=== PATIENT | male | born 1980 | race African-American/Black ===

== ENCOUNTER 2017-01-27 18:45 | Inpatient (IN) | payer MEDICAID ==
[~2017-01-27] VITALS: Ht 172.7 cm; Wt 77.1 kg
[~2017-01-27 18:45] MED LIST: IOHEXOL-350 100 ML BOTTLE ONE; SODIUM CHLORIDE 0.9% 10ML VIAL ONE
[2017-01-27] MEDS ORDERED: ALBUTEROL (0.083%) 2.5MG/3ML NEB HHN STA (22:36)
[2017-01-27] MEDS ORDERED: IPRATROPIUM BROMIDE (0.02%) 0.5MG/2.5ML NEB HHN STA (22:36)
[2017-01-27] MEDS ORDERED: KETOROLAC 30MG/ML VIAL IV STA (22:36)
[2017-01-27] MEDS ORDERED: METHYLPREDNISOLONE SOD SUCC 125 MG/2 ML VIAL IV STA (22:36)
[2017-01-27] MEDS ORDERED: CEFTRIAXONE 1 G PREMIX 50 ML IV ONE (22:45)
[2017-01-27] MEDS ORDERED: ASPIRIN 81MG TABLET PO ONE (22:45)
[2017-01-27] MEDS ORDERED: AZITHROMYCIN 500 MG in DEXT 5% WATER 250 ML IV ONE (22:45)
[2017-01-27] MEDS ORDERED: MAGNESIUM 2 G PREMIX 50 ML IV ONE (22:45)
[2017-01-27 23:03] LABS: BG DEOXYHEMOGLOBIN 4.5 % (0.0-5.0); BG FRACTION INSPIRED OXYGEN 21; BG HCO3 ACT 21.7 mmol/L (22.0-26.0); BG METHEMOGLOBIN 0.3 % (0.0-1.5); BG OXYGEN SATURATION 95.4 % (92.0-98.5); BG OXYHEMOGLOBIN 94.2 % (94.0-97.0); BG PH 7.522 (7.350-7.450); BG PO2 72.3 mmHg (75.0-100.0); BG SAMPLE SITE RIGHT RADIAL; BG VENT MODE ROOM AIR
[2017-01-27 23:06] LABS: *AMPHETAMINES SCREEN URINE PRESUMTIVE POSITIVE (NEGATIVE); *BARBITURATES SCREEN URINE NEGATIVE (NEGATIVE); *BENZODIAZEPINES SCREEN URINE NEGATIVE (NEGATIVE); *COCAINE SCREEN URINE NEGATIVE (NEGATIVE); CANNABINOID URINE SCREEN PRESUMTIVE POSITIVE (NEGATIVE); METHADONE URINE SCREEN NEGATIVE (NEGATIVE); OPIATES URINE SCREEN NEGATIVE (NEGATIVE); PHENCYCLIDINE URINE SCREEN NEGATIVE (NEGATIVE)
[2017-01-27 23:13] LABS: BASOPHILS % 0.5 % (0.0-2.0); EOSINOPHILS % 2.7 % (0.0-5.0); HEMATOCRIT. 39.5 % (42.0-52.0); HEMOGLOBIN. 12.9 g/dL (14.0-18.0); LYMPHOCYTES % 28.1 % (20.0-50.0); MEAN CORPUSCULAR HEMOGLOBIN 27.5 pg (28.0-32.0); MEAN PLATELET VOLUME 8.1 fl (7.4-10.4); MONOCYTES % 6.1 % (2.0-8.0); NEUTROPHILS % 62.6 % (40.0-76.0); PLATELET 187 x1000/uL (130-400); RED CELL DISTRIBUTION WIDTH 15.4 % (11.6-14.6)
[2017-01-27 23:20] LABS: INR 1.3; PROTHROMBIN TIME 13.4 sec (9.4-11.6)
[2017-01-27 23:28] LABS: CARBON DIOXIDE 26 mEq/L (21-32); CHLORIDE 104 mEq/L (98-107)
[2017-01-27 23:29] LABS: ETHANOL BLOOD < 10 mg/dL
[2017-01-27] MEDS ORDERED: SODIUM CHLORIDE 0.9% 500 ML IV NR (23:36)
[2017-01-28] VITALS (7 sets, daily range): BP systolic 94–152; BP diastolic 70–78
[2017-01-28] MEDS ORDERED: IPRATROPIUM/ALBUTEROL 0.5-3(2.5)MG/3ML NEB INH PRN
[2017-01-28] MEDS ORDERED: ACETAMINOPHEN 325MG TABLET PO PRN
[2017-01-28] MEDS ORDERED: HYDROCODONE/ACETAMINOPHEN 5/325MG TABLET PO PRN
[2017-01-28] MEDS ORDERED: MAGNESIUM/ALUMINUM HYDROXIDE/SIMETHICONE 30ML UDC PO PRN
[2017-01-28] MEDS ORDERED: CLONIDINE 0.1MG TABLET PO PRN
[2017-01-28] MEDS ORDERED: ONDANSETRON HCL 4MG/2ML VIAL IV PRN
[2017-01-28] MEDS: BUDESONIDE 0.5MG/2ML NEB HHN SCH ×2 (08:01→20:40)
[2017-01-28] MEDS: AZITHROMYCIN 500 MG TABLET PO SCH (09:20)
[2017-01-28] MEDS: ENOXAPARIN 40MG/0.4ML SYR SUBCUT SCH (09:20)
[2017-01-28 09:27] LABS: BASOPHILS % 0.2 % (0.0-2.0); EOSINOPHILS % 1.3 % (0.0-5.0); HEMATOCRIT. 37.3 % (42.0-52.0); HEMOGLOBIN. 12.2 g/dL (14.0-18.0); LYMPHOCYTES % 23.5 % (20.0-50.0); MEAN CORPUSCULAR HEMOGLOBIN 27.4 pg (28.0-32.0); MEAN CORPUSCULAR VOLUME 83.6 fL (80.0-94.0); MEAN PLATELET VOLUME 8.1 fl (7.4-10.4); MONOCYTES % 7.2 % (2.0-8.0); NEUTROPHILS % 67.8 % (40.0-76.0); PLATELET 184 x1000/uL (130-400); RED BLOOD CELL COUNT 4.46 mill/uL (4.7-6.1); RED CELL DISTRIBUTION WIDTH 15.3 % (11.6-14.6)
[2017-01-28 09:53] LABS: CREATINE KINASE MB FRACTION 1.5 ng/mL (0.5-3.6)
[2017-01-28] MEDS: IPRATROPIUM/ALBUTEROL 0.5-3(2.5)MG/3ML NEB HHN SCH ×2 (14:49→20:41)
[2017-01-28] MEDS: CARVEDILOL 3.125 MG TABLET PO SCH (21:00)
[2017-01-28 22:58] LABS: CREATINE KINASE MB FRACTION 1.4 ng/mL (0.5-3.6)
[2017-01-29] VITALS (7 sets, daily range): BP systolic 96–113; BP diastolic 68–79
[2017-01-29] MEDS: IPRATROPIUM/ALBUTEROL 0.5-3(2.5)MG/3ML NEB HHN SCH ×4 (03:39→21:12)
[2017-01-29 07:02] LABS: BASOPHILS % 0.2 % (0.0-2.0); EOSINOPHILS % 1.4 % (0.0-5.0); HEMATOCRIT. 36.9 % (42.0-52.0); HEMOGLOBIN. 12.1 g/dL (14.0-18.0); LYMPHOCYTES % 25.8 % (20.0-50.0); MEAN CORPUSCULAR HEMOGLOBIN 27.3 pg (28.0-32.0); MEAN CORPUSCULAR VOLUME 83.2 fL (80.0-94.0); MEAN PLATELET VOLUME 8.4 fl (7.4-10.4); MONOCYTES % 8.7 % (2.0-8.0); NEUTROPHILS % 63.9 % (40.0-76.0); PLATELET 197 x1000/uL (130-400); RED BLOOD CELL COUNT 4.43 mill/uL (4.7-6.1); RED CELL DISTRIBUTION WIDTH 15.3 % (11.6-14.6)
[2017-01-29 08:22] LABS: CARBON DIOXIDE 25 mEq/L (21-32); CHLORIDE 103 mEq/L (98-107)
[2017-01-29] MEDS: BUDESONIDE 0.5MG/2ML NEB HHN SCH ×2 (08:38→21:12)
[2017-01-29] MEDS: AZITHROMYCIN 500 MG TABLET PO SCH (08:54)
[2017-01-29] MEDS: ENOXAPARIN 40MG/0.4ML SYR SUBCUT SCH (08:55)
[2017-01-29] MEDS: CARVEDILOL 3.125 MG TABLET PO SCH ×2 (08:55→21:40)
[2017-01-29] MEDS: DOCUSATE SODIUM 100MG CAPSULE PO PRN (08:55)
[2017-01-29] MEDS ORDERED: LEVOFLOXACIN 500MG TABLET PO SCH (11:00)
[2017-01-29] MEDS ORDERED: P20 PO (11:10)
[2017-01-29] MEDS ORDERED: PULM50 HHN (11:10)
[2017-01-29] MEDS ORDERED: COR3 PO (11:10)
[2017-01-29] MEDS ORDERED: ALBU6.7H INH (11:10)
[2017-01-29] MEDS ORDERED: AMOX-424 PO (11:10)
[2017-01-29] MEDS: METHYLPREDNISOLONE SOD SUCC 40 MG/ML VIAL IV SCH ×2 (11:50→16:27)
[2017-01-30] VITALS: BP 101/75
[2017-01-30] MEDS: IPRATROPIUM/ALBUTEROL 0.5-3(2.5)MG/3ML NEB HHN SCH ×5 (01:55→21:00)
[2017-01-30 04:00] VITALS: BP 103/79
[2017-01-30 08:00] VITALS: BP 109/81
[2017-01-30] MEDS: METHYLPREDNISOLONE SOD SUCC 40 MG/ML VIAL IV SCH (08:31)
[2017-01-30] MEDS: DOCUSATE SODIUM 100MG CAPSULE PO PRN (08:32)
[2017-01-30] MEDS: AZITHROMYCIN 500 MG TABLET PO SCH (08:32)
[2017-01-30] MEDS: ENOXAPARIN 40MG/0.4ML SYR SUBCUT SCH (08:32)
[2017-01-30] MEDS: CARVEDILOL 3.125 MG TABLET PO SCH ×2 (08:33→21:00)
[2017-01-30] MEDS: BUDESONIDE 0.5MG/2ML NEB HHN SCH ×2 (08:41→21:00)
[2017-01-30] MEDS: LEVOFLOXACIN 750MG PREMIX 150 ML IV SCH (11:00)
[2017-01-30 12:00] VITALS: BP 98/71
[2017-01-30] MEDS ORDERED: SIMETHICONE 80MG TABLET CHEW PO PRN (14:00)
[2017-01-30] MEDS: METHYLPREDNISOLONE SOD SUCC 125 MG/2 ML VIAL IV SCH ×2 (14:44→21:09)
[2017-01-30] MEDS: PANTOPRAZOLE 40MG DR TABLET PO SCH (14:49)
[2017-01-30 16:00] VITALS: BP 107/80
[2017-01-30 20:00] VITALS: BP 110/74
[2017-01-31] VITALS: BP 106/76
[2017-01-31] MEDS: IPRATROPIUM/ALBUTEROL 0.5-3(2.5)MG/3ML NEB HHN SCH ×4 (00:26→12:41)
[2017-01-31 04:00] VITALS: BP 105/68
[2017-01-31] MEDS: PANTOPRAZOLE 40MG DR TABLET PO SCH (06:38)
[2017-01-31] MEDS: METHYLPREDNISOLONE SOD SUCC 125 MG/2 ML VIAL IV SCH (06:38)
[2017-01-31] MEDS: BUDESONIDE 0.5MG/2ML NEB HHN SCH (07:55)
[2017-01-31 08:00] VITALS: BP 109/81
[2017-01-31] MEDS: CARVEDILOL 3.125 MG TABLET PO SCH (09:00)
[2017-01-31] MEDS: ENOXAPARIN 40MG/0.4ML SYR SUBCUT SCH (09:21)
[2017-01-31] MEDS: AZITHROMYCIN 500 MG TABLET PO SCH (09:21)
[2017-01-31] MEDS: LEVOFLOXACIN 750MG PREMIX 150 ML IV SCH (11:00)
[2017-01-31 12:00] VITALS: BP 117/70
[2017-01-31] MEDS ORDERED: LORAZEPAM 0.5MG TABLET PO PRN (12:15)
[2017-01-31 12:47] VITALS: BP 120/75
[2017-01-31] MEDS ORDERED: CARVEDILOL 3.125 MG TABLET PO SCH (21:00)
[2017-03-25] MEDS ORDERED: FURO40TA5 PO ×2 (14:47→16:47)
== END 2017-01-31 14:20 | disposition home or self-care (01) | DRG 133 ==
LOC: ER 18:45 → 5WST 23:40 → ENRESERV 01-28 02:21
PROVIDERS: ADMIT Internal Medicine; ATTEND Internal Medicine
DX: J96.01 Acute respiratory failure with hypoxia (principal); E43 Unspecified severe protein-calorie malnutrition; I50.23 Acute on chronic systolic (congestive) heart failure; J18.9 Pneumonia, unspecified organism; I27.2 Other secondary pulmonary hypertension; I42.9 Cardiomyopathy, unspecified; J44.0 Chronic obstructive pulmonary disease with (acute) lower respiratory infection; F15.10 Other stimulant abuse, uncomplicated; F17.210 Nicotine dependence, cigarettes, uncomplicated; K21.9 Gastro-esophageal reflux disease without esophagitis; Z85.71 Personal history of Hodgkin lymphoma; Z92.21 Personal history of antineoplastic chemotherapy; Z79.899 Other long term (current) drug therapy; Z85.72 Personal history of non-Hodgkin lymphomas; Z91.19 Patient's noncompliance with other medical treatment and regimen; M94.0 Chondrocostal junction syndrome [Tietze]
CPT/HCPCS: 36415; 36600; 71010; 71275; 80048; 80053; 80061; 80305; 82375; 82550; 82553; 82805; 82962; 83605; 83690; 83735; 84484; 85025; 85379; 85610; 87040; 87493; 93005; 93970; 94640; 96365; 96366; 96368; 96375; 99291; A4216; G0482; J0456; J0696; J1650; J1885; J1956; J2920; J2930; J3475; J7060; J7611; J7620; J7626; Q9967